=== PATIENT | female | born 1975 | race Caucasian/White ===

== ENCOUNTER 2016-07-21 22:32 | Emergency (ER) | payer BC ==
[2016-07-21] MEDS ORDERED: METHOCARBAMOL 750 MG TABLET PO ONE (23:56)
[2016-07-21] MEDS ORDERED: KETOROLAC TROMETHAMINE 60 MG/2 ML SDV IM ONE (23:56)
--- NOTE | 2016-07-21 23:59 | ER Document Report ---
ED Neck/Back Problem - General Chief Complaint: Low back pain and L hip pain Stated Complaint: BACK/HIP PAIN Time Seen by Provider: 07/21/16 23:13 Mode of Arrival: Ambulatory Information source: Patient TRAVEL OUTSIDE OF THE [place] IN LAST 30 DAYS: No - HPI Patient complains to provider of: Pain Onset: Yesterday Where: Home Onset: Gradual Timing: Still present Quality of pain: Achy Severity: Moderate Pain Level: 3 Recent injury: No Associated symptoms: None Exacerbated by: Movement of trunk Relieved by: Nothing Similar symptoms previously: Yes Recently seen / treated by doctor: No Notes: Patient is a 41-year-old female who presents to the emergency room complaining of low back and left hip pain, symptoms have been going on for the past 2 days, she has a history of injury to these areas from falling off a horse several years ago, and every now and then she states she gets the pain which flares up, she denies any recent injury, no numbness or tingling to her extremities, no saddle anesthesia, no bowel or bladder dysfunction, she has some Dilaudid at home from previous injury which she took earlier today and it gave her no relief , states that Robaxin has given her relief of symptoms in the past - Related Data Allergies/Adverse Reactions: cephalexin monohydrate [From Keflex] Allergy (Verified 02/20/16 16:09) ciprofloxacin [From Cipro] Allergy (Verified 02/20/16 16:09) ciprofloxacin HCl [From Cipro] Allergy (Verified 02/20/16 16:09) Penicillins Allergy (Verified 02/20/16 16:09) Sulfa (Sulfonamide Antibiotics) Allergy (Verified 02/20/16 16:09) iodine [Iodine] Adverse Reaction (Verified 02/20/16 16:09) Past Medical History - General Information source: Patient - Social History Smoking Status: Never Smoker Family History: Reviewed & Not Pertinent - Past Medical History Cardiac Medical History: Reports: Hx Hypertension Pulmonary Medical History: Reports: Hx Asthma Endocrine Medical History: Reports: Hx Hypothyroidism Renal/ Medical History: Denies: Hx Peritoneal Dialysis Psychiatric Medical History: Reports: Hx Depression - Immunizations Hx Diphtheria, Pertussis, Tetanus Vaccination: Yes Review of Systems - Review of Systems Constitutional: No symptoms reported EENT: No symptoms reported Cardiovascular: No symptoms reported Respiratory: No symptoms reported Gastrointestinal: No symptoms reported Genitourinary: No symptoms reported Female Genitourinary: No symptoms reported Musculoskeletal: See HPI Skin: No symptoms reported Hematologic/Lymphatic: No symptoms reported Neurological/Psychological: No symptoms reported -: Yes All other systems reviewed and negative Physical Exam - Vital signs Vitals: Temp Pulse Resp BP Pulse Ox 98.3 F 80 18 130/90 H 100 07/21/16 22:38 07/21/16 22:38 07/21/16 22:38 07/21/16 22:38 07/21/16 22:38 - Notes Notes: - General General appearance: Appears well, Alert In distress: None - HEENT Head: Normocephalic, Atraumatic Eyes: Normal Conjunctiva: Normal Extraocular movements intact: Yes Eyelashes: Normal Pupils: PERRL - Respiratory Respiratory status: No respiratory distress - Cardiovascular Rhythm: Regular - Abdominal Inspection: Normal - Back Back: Palpation left lumbar paraspinal musculature, patient reports pain with straight leg raise, sensation and motor is intact with 2+ DP - Extremities General upper extremity: Normal inspection General lower extremity: Palpate over left greater trochanter - Neurological Neuro grossly intact: Yes Orientation: AAOx4 [place] Coma Scale Eye Opening: Spontaneous Last Coma Scale Verbal: Oriented Last Coma Scale Motor: Obeys Commands [place] Coma Scale Total: 15 - Psychological Associated symptoms: Normal affect, Normal mood - Skin Skin Temperature: Warm Skin Moisture: Dry Skin Color: Normal Course - Re-evaluation Re-evalutation: 07/22/16 00:36 Patient reports feeling much better and ready to go home, she was given a prescription for muscle relaxers and advised to follow-up with her primary care provider or return if symptoms worsen, patient acknowledges understanding and agreement with this plan - Vital Signs Vital signs: Temp Pulse Resp BP Pulse Ox 98.3 F 80 18 130/90 H 100 07/21/16 22:38 07/21/16 22:38 07/21/16 22:38 07/21/16 22:38 07/21/16 22:38 Discharge - Discharge Clinical Impression: Low back pain Qualifiers: Chronicity: acute Back pain laterality: left Sciatica presence: with sciatica Sciatica laterality: sciatica of left side Qualified Code(s): M54.42 - Lumbago with sciatica, left side Condition: Stable Disposition: HOME, SELF-CARE Instructions: Low Back Pain ([facility]), Muscle Strain ([facility]) Additional Instructions: Follow up with your primary care provider in one to 2 days. Return to the emergency room immediately if symptoms worsen or any additional concerns. Prescriptions: Methocarbamol [Robaxin 750 mg Tablet] 750 mg PO Q4 #20 tablet
[2016-07-22 00:50] VITALS: BP 128/83
== END 2016-07-22 00:40 | disposition home or self-care (01) ==
LOC: ER 22:32
DX: M54.42 Lumbago with sciatica, left side (principal); M54.5 Low back pain; M25.552 Pain in left hip
CPT/HCPCS: 99283; 96372; J1885; J3490

== ENCOUNTER 2016-07-31 21:38 | Emergency (ER) | payer BC ==
[2016-07-31] MEDS ORDERED: LIDOCAINE 5% (700 MG) TRANSDERMAL ADH..PATCH TP ONE (23:36)
--- NOTE | 2016-07-31 23:37 | ER Document Report ---
ED General - General Chief Complaint: Low Back Pain Stated Complaint: BACK PAIN Time Seen by Provider: 07/31/16 22:58 Notes: Patient is a 41-year-old female without past medical history who presents with 2 weeks of low back pain. Does describe it as a severe, constant stabbing pain to the sacrum and the bilateral zofia-low lumbar spinal muscles. She was seen 2 weeks ago for a similar presentation but states that despite taking NSAIDs and muscle relaxants she has not had resolution of her pain. Notes that sitting down or moving worsens the pain. She notes that ibuprofen and using a TENS unit tends to improve her pain. She denies any associated weakness, numbness, bowel or bladder incontinence, urinary retention, fever, weakness, numbness or difficulty ambulating. TRAVEL OUTSIDE OF THE [place] IN LAST 30 DAYS: No - Related Data Allergies/Adverse Reactions: cephalexin monohydrate [From Keflex] Allergy (Verified 07/22/16 02:22) ciprofloxacin [From Cipro] Allergy (Verified 07/22/16 02:22) ciprofloxacin HCl [From Cipro] Allergy (Verified 07/22/16 02:22) Penicillins Allergy (Verified 07/22/16 02:22) Sulfa (Sulfonamide Antibiotics) Allergy (Verified 07/22/16 02:22) iodine [Iodine] Adverse Reaction (Verified 07/22/16 02:22) Past Medical History - General Information source: Patient - Social History Smoking Status: Never Smoker Chew tobacco use (# tins/day): No Frequency of alcohol use: None Drug Abuse: None Lives with: Spouse/Significant other Family History: Reviewed & Not Pertinent Patient has suicidal ideation: No Patient has homicidal ideation: No - Past Medical History Cardiac Medical History: Reports: Hx Hypertension Pulmonary Medical History: Reports: Hx Asthma Endocrine Medical History: Reports: Hx Hypothyroidism Renal/ Medical History: Denies: Hx Peritoneal Dialysis Psychiatric Medical History: Reports: Hx Depression - Immunizations Hx Diphtheria, Pertussis, Tetanus Vaccination: Yes Review of Systems - Review of Systems Notes: Constitutional: Negative for fever. Cardiovascular: Negative for chest pain. Respiratory: Negative for shortness of breath. Gastrointestinal: Negative for vomiting Musculoskeletal: Positive for back pain. Skin: Negative for rash. Neurological: Negative for weakness or numbness. 10 point ROS negative except as marked above and in HPI. Physical Exam - Vital signs Vitals: Temp Pulse Resp BP Pulse Ox 97.8 F 79 18 150/98 H 98 07/31/16 21:55 07/31/16 21:55 07/31/16 21:55 07/31/16 21:55 07/31/16 21:55 Interpretation: Hypertensive Notes: PHYSICAL EXAMINATION: GENERAL: Well-appearing, well-nourished and in no acute distress. HEAD: Atraumatic, normocephalic. EYES: Pupils equal round and reactive to light, extraocular movements intact, sclera anicteric, conjunctiva are normal. ENT: nares patent, oropharynx clear without exudates. Moist mucous membranes. NECK: Normal range of motion, supple without lymphadenopathy LUNGS: Breath sounds clear to auscultation bilaterally and equal. No wheezes rales or rhonchi. HEART: Regular rate and rhythm without murmurs ABDOMEN: Soft, nontender, normoactive bowel sounds. No guarding, no rebound. No masses appreciated. EXTREMITIES: Normal range of motion, no pitting or edema. No cyanosis. Back: Diffuse zofia-lumbar and sacral pain on palpation. Mild pain on palpation of the low sacrum. NEUROLOGICAL: 5 out of 5 strength both distally and proximally bilateral lower extremities. 2+ patellar reflexes bilaterally. No clonus. Sensation grossly intact in the bilateral lower extremities. Patient is able to ambulate without difficulty. Able to walk on heels and toes. PSYCH: Normal mood, normal affect. SKIN: Warm, Dry, normal turgor, no rashes or lesions noted. Course - Re-evaluation Re-evalutation: 07/31/16 23:36 Presentation of a well appearing patient complaining of acute on chronic back pain. No rapid progression of symptoms, systemic symptoms including fevers, chills, weight loss, history of recent bacterial infection, bilateral symptoms, numbness, weakness, difficulty walking, urinary retention or bowel incontinence , personal history of cancer, immunosuppression, diabetes, known AAA, or history of IV drug use. Exam is without point tenderness over vertebral bodies , pulsatile abdominal mass, and patient has symmetric and intact lower extremity strength, sensation, and reflexes without clonus. 2+ symmetric medial malleolar and dorsalis pedis pulses Based on history and physical, I have a very low suspicion of a concerning etiology of pain including epidural compression syndrome, spinal infection, transverse myelitis, malignancy, abdominal aortic aneurysm, renal colic, acute lower extremity claudication, neurogenic claudication, ankylosing spondylitis, or other intra-abdominal process. Due to absence of concerning risk factors in history and physical as well as absence of rapidly progressive, severe, or bilateral symptoms, will defer imaging at this point. Plan to manage conservatively with outpatient analgesia, analgesia, and physical therapy. - Acetaminophen 650 q 4 + ibuprofen 600 q 6 - Continue normal daily activities as tolerated by pain - Provide with standard musculoskeletal back pain exercise instructions - Instruct to follow up with primary care provider if symptoms not improving - Provide careful return precautions and concerning symptoms to watch for. - Vital Signs Vital signs: Temp Pulse Resp BP Pulse Ox 97.8 F 74 17 129/68 H 98 07/31/16 21:55 07/31/16 23:54 07/31/16 23:54 07/31/16 23:54 07/31/16 23:54 Discharge - Discharge Clinical Impression: Low back pain Qualifiers: Chronicity: acute Back pain laterality: midline Sciatica presence: without sciatica Qualified Code(s): M54.5 - Low back pain Condition: Good Disposition: HOME, SELF-CARE Additional Instructions: You have been seen in the Emergency Department (ED) today for back pain. Your workup and exam have not shown any acute abnormalities and you are likely suffering from muscle strain or possible problems with your discs, but there is no treatment that will fix your symptoms at this time. Continue to take ibuprofen as directed. You should also purchase a local lidocaine cream such as "aspercreme with lidocaine" and use per bottle instructions to the affected area. Apply heat to the area as often as you are able. Continue to keep active and avoid prolonged periods of bed rest. Please follow up with your doctor as soon as possible regarding today's ED visit and your back pain. Return to the ED for worsening back pain, fever, weakness or numbness of either leg, or if you develop either (1) an inability to urinate or have bowel movements, or (2) loss of your ability to control your bathroom functions (if you start having "accidents"), or if you develop other new symptoms that concern you.concern you. Referrals: MAURO PRESSLEY MD [ACTIVE STAFF] - Follow up in 1 week
[2016-07-31 23:55] VITALS: BP 129/68
== END 2016-07-31 23:53 | disposition home or self-care (01) ==
LOC: ER 21:38
DX: M54.5 Low back pain (principal); G89.29 Other chronic pain; I10 Essential (primary) hypertension; J45.909 Unspecified asthma, uncomplicated; Z88.1 Allergy status to other antibiotic agents; Z88.0 Allergy status to penicillin; Z88.2 Allergy status to sulfonamides
CPT/HCPCS: 99283

== ENCOUNTER 2016-08-23 03:53 | Emergency (ER) | payer BC ==
[2016-08-23 04:27] LABS: APPEARANCE,URINE TURBID; BILIRUBIN,URINE NEGATIVE (NEGATIVE); GLUCOSE, URINE 50 mg/dL (NEGATIVE); KETONES,URINE NEGATIVE (NEGATIVE); LEUKOCYTE ESTERASE,URINE SMALL (NEGATIVE); NITRITE,URINE POSITIVE (NEGATIVE); PROTEIN,URINE 100 mg/dL (NEGATIVE); URINE SPECIFIC GRAVITY 1.014
[2016-08-23] MEDS ORDERED: NITROFURANTOIN MONOHYD/M-CRYST 100 MG CAPSULE PO ONE (06:05)
[2016-08-23 06:12] LABS: ABSOLUTE EOSINOPHILS # (AUTO) 0.1 10^3/uL (0.0-0.6); ABSOLUTE LYMPHOCYTES (AUTO) 1.3 10^3/uL (0.5-4.7); ABSOLUTE MONOCYTES (AUTO) 0.8 10^3/uL (0.1-1.4); ABSOLUTE NEUT (AUTO) 8.6 10^3/uL (1.7-8.2); BASOPHILS % (AUTO) 0.4 % (0-2); EOSINOPHILS % (AUTO) 0.8 % (0-6); HEMATOCRIT 40.8 % (36.0-47.0); HEMOGLOBIN 13.8 g/dL (12.0-15.5); HGB HCT DIFFERENCE 0.6; LYMPHOCYTES % (AUTO) 12.3 % (13-45); MEAN CORPUSCULAR HGB CONC 33.8 g/dL (32.0-36.0); MEAN CORPUSCULAR VOLUME 92 fl (80-97); MONOCYTES % (AUTO) 7.6 % (3-13); RED BLOOD COUNT 4.45 10^6/uL (3.72-5.28); RED CELL DISTRIBUTION WIDTH 13.2 % (11.5-14.0); SEGMENTED NEUTROPHILS % (AUTO) 78.9 % (42-78); WHITE BLOOD COUNT 10.9 10^3/uL (4.0-10.5)
[2016-08-23 06:36] LABS: ALANINE AMINOTRANSFERASE 29 U/L (9-52); ALBUMIN 3.8 g/dL (3.5-5.0); ALKALINE PHOSPHATASE 65 U/L (38-126); ANION GAP 9 (5-19); ASPARTATE AMINO TRANSFERASE 19 U/L (14-36); BILIRUBIN,DIRECT 0.1 mg/dL (0.0-0.4); BILIRUBIN,TOTAL 0.8 mg/dL (0.2-1.3); BLOOD UREA NITROGEN 6 mg/dL (7-20); CALCIUM 8.5 mg/dL (8.4-10.2); CARBON DIOXIDE 28 mmol/L (22-30); CHLORIDE 101 mmol/L (98-107); GLUCOSE 86 mg/dL (75-110); POTASSIUM 4.2 mmol/L (3.6-5.0); SODIUM 137.6 mmol/L (137-145); TOTAL PROTEIN 6.6 g/dL (6.3-8.2)
[2016-08-23] MEDS ORDERED: PROCHLORPERAZINE EDISYLATE INJ 10 MG/2 ML VIAL IM ONE (06:48)
[2016-08-23] MEDS ORDERED: DEXAMETHASONE SOD PHOS INJ 10 MG/1 ML VIAL IM ONE (06:48)
[2016-08-23] MEDS ORDERED: DIPHENHYDRAMINE HCL 50 MG/ML VIAL IM ONE (06:48)
--- NOTE | 2016-08-23 07:29 | ER Document Report ---
ED General - General Chief Complaint: Lower Abdominal Pain Stated Complaint: LOWER ABDOMINAL PAIN Time Seen by Provider: 08/23/16 06:02 Mode of Arrival: Ambulatory Information source: Patient Notes: 41-year-old female history of migraine headaches presents with complaints of migraine headache. Patient denies any neurological deficits denies any numbness weakness loss of bowel or bladder function. Patient does admit to symptoms ongoing now for over 4 days. Patient also admits since yesterday she began having pressure in her bladder and she took Macrobid that she had leftover. TRAVEL OUTSIDE OF THE [place] IN LAST 30 DAYS: No - HPI Onset: Just prior to arrival Onset/Duration: Sudden Quality of pain: Achy Severity: Mild Pain Level: 1 Associated symptoms: Headache, Other Exacerbated by: Other - Urination Relieved by: Denies Similar symptoms previously: Yes Recently seen / treated by doctor: No - Related Data Allergies/Adverse Reactions: cephalexin monohydrate [From Keflex] Allergy (Verified 07/22/16 02:22) ciprofloxacin [From Cipro] Allergy (Verified 07/22/16 02:22) ciprofloxacin HCl [From Cipro] Allergy (Verified 07/22/16 02:22) Penicillins Allergy (Verified 07/22/16 02:22) Sulfa (Sulfonamide Antibiotics) Allergy (Verified 07/22/16 02:22) iodine [Iodine] Adverse Reaction (Verified 07/22/16 02:22) Past Medical History - Social History Smoking Status: Never Smoker Cigarette use (# per day): No Chew tobacco use (# tins/day): No Smoking Education Provided: No Family History: Reviewed & Not Pertinent Patient has suicidal ideation: No Patient has homicidal ideation: No - Past Medical History Cardiac Medical History: Reports: Hx Hypertension Pulmonary Medical History: Reports: Hx Asthma Endocrine Medical History: Reports: Hx Hypothyroidism Renal/ Medical History: Denies: Hx Peritoneal Dialysis Psychiatric Medical History: Reports: Hx Depression - Immunizations Hx Diphtheria, Pertussis, Tetanus Vaccination: Yes Review of Systems - Review of Systems Notes: REVIEW OF SYSTEMS: CONSTITUTIONAL : Denies fever, chills, or sweats. Denies recent illness. EENT: Denies eye, ear, throat, or mouth pain or symptoms. Denies nasal or sinus congestion or discharge. Denies throat, tongue, or mouth swelling or difficulty swallowing. CARDIOVASCULAR: Denies chest pain. Denies palpitations or racing or irregular heart beat. Denies ankle edema. RESPIRATORY: Denies cough, cold, or chest congestion. Denies shortness of breath, difficulty breathing, or wheezing. GASTROINTESTINAL: Denies abdominal pain or distention. Denies nausea, vomiting , or diarrhea. Denies blood in vomitus, stools, or per rectum. Denies black, tarry stools. Denies constipation. GENITOURINARY: Burning on urination FEMALE GENITOURINARY: Denies vaginal bleeding, heavy or abnormal periods, irregular periods. Denies vaginal discharge or odor. MUSCULOSKELETAL: Denies back or neck pain or stiffness. Denies joint pain or swelling. SKIN: Denies rash, lesions or sores. HEMATOLOGIC : Denies easy bruising or bleeding. LYMPHATIC: Denies swollen, enlarged glands. NEUROLOGICAL: Admits headache PSYCHIATRIC: Denies anxiety or stress. Denies depression, suicidal ideation, or homicidal ideation. ALL OTHER SYSTEMS REVIEWED AND NEGATIVE. PHYSICAL EXAMINATION: GENERAL: Well-appearing, well-nourished and in no acute distress. HEAD: Atraumatic, normocephalic. EYES: Pupils equal round and reactive to light, extraocular movements intact, conjunctiva are normal. ENT: Nares patent, oropharynx clear without exudates. Moist mucous membranes. NECK: Normal range of motion, supple without lymphadenopathy LUNGS: Breath sounds clear to auscultation bilaterally and equal. No wheezes rales or rhonchi. HEART: Regular rate and rhythm without murmurs ABDOMEN: Soft, mild suprapubic tenderness on palpation no rebound or guarding No masses appreciated. Female : deferred Musculoskeletal: Normal range of motion, no pitting or edema. No cyanosis. NEUROLOGICAL: Cranial nerves grossly intact. Normal speech, normal gait. Normal sensory, motor exams PSYCH: Normal mood, normal affect. SKIN: Warm, Dry, normal turgor, no rashes or lesions noted. Dictation was performed using [email or web address] voice recognition software Physical Exam - Vital signs Vitals: Temp Pulse Resp BP Pulse Ox 97.8 F 83 20 136/97 H 97 08/23/16 03:58 08/23/16 03:58 08/23/16 03:58 08/23/16 03:58 08/23/16 03:58 Course - Re-evaluation Re-evalutation: 08/23/16 07:29 Patient does have an obvious urinary tract infection, patient will be started on Macrobid. She is otherwise well-appearing. Patient does have a headache we will treat her with Benadryl Compazine and Decadron 08/23/16 08:35 Patient is drowsy but states she still has a headache, I will try Haldol for intractable headache 08/23/16 09:13 pt notes headaches in past have not resovled with benadryl compazin or toradol 08/23/16 10:18 Patient headache resolved with 10 mg of Haldol, patient feels completely better After performing a Medical Screening Examination, I estimate there is LOW risk for ACUTE GLAUCOMA, TEMPORAL ARTERITIS, MENINGITIS, INCRANIAL HEMORRHAGE, or ISCHEMIC STROKE thus I consider the discharge disposition reasonable. I have reevaluated this patient multiple times and no significant life threatening changes are noted. The patient and I have discussed the diagnosis and risks, and we agree with discharging home with close follow-up with the understanding that symptoms and presentations can change. We also discussed returning to the Emergency Department immediately if new or worsening symptoms occur. We have discussed the symptoms which are most concerning (e.g., changing or worsening symptoms, new numbness or weakness, vomiting, fever) that necessitate immediate return. - Vital Signs Vital signs: Temp Pulse Resp BP Pulse Ox 97.8 F 83 20 136/97 H 97 08/23/16 03:58 08/23/16 03:58 08/23/16 03:58 08/23/16 03:58 08/23/16 03:58 - Laboratory Result Diagrams: 08/23/16 06:02 08/23/16 06:02 Laboratory results interpreted by me: 08/23/16 08/23/16 08/23/16 03:58 06:02 06:02 WBC 10.9 H Seg Neutrophils % 78.9 H Lymphocytes % 12.3 L Absolute Neutrophils 8.6 H BUN 6 L Urine Protein 100 H Urine Glucose (UA) 50 H Urine Blood LARGE H Urine Nitrite POSITIVE H Urine Urobilinogen 2.0 H Ur Leukocyte Esterase SMALL H Discharge - Discharge Clinical Impression: Migraine headache Qualifiers: Migraine type: unspecified Status migrainosus presence: without status migrainosus Intractability: not intractable Qualified Code(s): G43.909 - Migraine, unspecified, not intractable, without status migrainosus UTI (urinary tract infection) Qualifiers: Urinary tract infection type: acute cystitis Hematuria presence: with hematuria Qualified Code(s): N30.01 - Acute cystitis with hematuria Condition: Stable Disposition: HOME, SELF-CARE Instructions: Urinary Tract Infection ([facility]), Headache ([facility]) Prescriptions: Nitrofurantoin/Nitrofuran Mac [Macrobid 100 mg Capsule] 1 tab PO BID #20 capsule Referrals: KADEN GRIFFITHS PA [Primary Care Provider] - Follow up as needed GIOVANNI MORALES MD [ACTIVE STAFF] - Follow up tomorrow
[2016-08-23] MEDS ORDERED: HALOPERIDOL 5 MG TABLET PO ONE (08:34)
[2016-08-23] MEDS ORDERED: DIPHENHYDRAMINE HCL 25 MG CAPSULE PO ONE (08:35)
[2016-08-23 10:27] VITALS: BP 141/99
== END 2016-08-23 10:29 | disposition home or self-care (01) ==
LOC: ER 03:53
DX: N30.01 Acute cystitis with hematuria (principal); G43.909 Migraine, unspecified, not intractable, without status migrainosus; I10 Essential (primary) hypertension; J45.909 Unspecified asthma, uncomplicated; Z88.1 Allergy status to other antibiotic agents; Z88.0 Allergy status to penicillin; Z88.2 Allergy status to sulfonamides
CPT/HCPCS: 99284; 96372; 36415; 85025; 81025; 80053; 81001; J1200; J0780; J1100; J8499

== ENCOUNTER 2016-08-25 16:58 | Emergency (ER) | payer BC ==
[2016-08-25] MEDS ORDERED: DIPHENHYDRAMINE HCL 50 MG/ML VIAL IV ONE (17:17)
[2016-08-25] MEDS ORDERED: METOCLOPRAMIDE HCL INJ/PF 10 MG/2 ML SDV IV ONE ×2 (17:17→20:36)
[2016-08-25] MEDS ORDERED: NORMAL SALINE 1000 ML 1,000 ML IV ONE (17:18)
--- NOTE | 2016-08-25 17:19 | ER Document Report ---
ED Medical Screen (RME) - General Chief Complaint: Headache Stated Complaint: VISION PROBLEM Time Seen by Provider: 08/25/16 17:11 Notes: The patient is a 41-year-old, PMHx migraines, presents with 3 days of a posterior headache and intermittent blurry vision when the headache is worse. She has had headaches in the past similar to this and usually resolve after 800 mg Motrin. She was seen in the emergency room 3 days ago for a UTI and was given Benadryl, Compazine, Toradol, fluids without much relief of her symptoms. She was then given 10 mg Haldol and had relief of her symptoms. Pt has a history of 2 concussions a few months ago before the headache started. PE: PERRL, Non-focal neuro exam. No acute distress. I have greeted and performed a rapid initial assessment of this patient. A comprehensive ED assessment and evaluation of the patient, analysis of test results and completion of the medical decision making process will be conducted by additional ED providers. TRAVEL OUTSIDE OF THE [place] IN LAST 30 DAYS: No - Related Data Allergies/Adverse Reactions: cephalexin monohydrate [From Keflex] Allergy (Verified 08/25/16 17:04) ciprofloxacin [From Cipro] Allergy (Verified 08/25/16 17:04) ciprofloxacin HCl [From Cipro] Allergy (Verified 08/25/16 17:04) Penicillins Allergy (Verified 08/25/16 17:04) Sulfa (Sulfonamide Antibiotics) Allergy (Verified 08/25/16 17:04) iodine [Iodine] Adverse Reaction (Verified 08/25/16 17:04) Past Medical History - Social History Chew tobacco use (# tins/day): No Frequency of alcohol use: None Drug Abuse: None - Past Medical History Cardiac Medical History: Reports: Hx Hypertension Pulmonary Medical History: Reports: Hx Asthma Endocrine Medical History: Reports: Hx Hypothyroidism Renal/ Medical History: Denies: Hx Peritoneal Dialysis Psychiatric Medical History: Reports: Hx Depression - Immunizations Hx Diphtheria, Pertussis, Tetanus Vaccination: Yes Physical Exam - Vital signs Vitals: Temp Pulse Resp BP Pulse Ox 97.9 F 73 16 153/90 H 99 08/25/16 17:03 08/25/16 17:03 08/25/16 17:03 08/25/16 17:03 08/25/16 17:03 Course - Vital Signs Vital signs: Temp Pulse Resp BP Pulse Ox 97.9 F 73 16 153/90 H 99 08/25/16 17:03 08/25/16 17:03 08/25/16 17:03 08/25/16 17:03 08/25/16 17:03
--- NOTE | 2016-08-25 18:07 | ER Document Report ---
ED Headache - General Chief Complaint: Headache Stated Complaint: VISION PROBLEM Time Seen by Provider: 08/25/16 17:11 Notes: Patient is complaining of a persistent headache that has been present since Friday. It awakened her during the night around 3:30 AM. It was associated with nausea but not vomiting, blurred vision, but no neurologic symptoms or deficits and no loss of consciousness. Patient was seen here Friday and it was noted that the patient has had headaches for a long time, since the age of about 16 years. Additionally, patient has a history of falls, hitting her head , with concussions this past January and February, and she has had a concussion about 7 years ago, as well. On that ED visit on Friday, she was found to have a UTI on that visit and started on Macrobid. They were unable to get her headache completely resolved with Reglan and Benadryl and steroid IM and eventually gave her 10 mg of Haldol p.o. and she had almost complete resolution of her headache, although it has come back now. She says that she has been feeling tired and no energy over the past few days and does not want to take anymore Haldol. Patient has not been aware of any fever. Denies sore throat or earaches. TRAVEL OUTSIDE OF THE [place] IN LAST 30 DAYS: No - Related Data Allergies/Adverse Reactions: cephalexin monohydrate [From Keflex] Allergy (Verified 08/25/16 17:04) ciprofloxacin [From Cipro] Allergy (Verified 08/25/16 17:04) ciprofloxacin HCl [From Cipro] Allergy (Verified 08/25/16 17:04) Penicillins Allergy (Verified 08/25/16 17:04) Sulfa (Sulfonamide Antibiotics) Allergy (Verified 08/25/16 17:04) iodine [Iodine] Adverse Reaction (Verified 08/25/16 17:04) Past Medical History - Social History Smoking Status: Never Smoker Chew tobacco use (# tins/day): No Frequency of alcohol use: None Drug Abuse: None Family History: Reviewed & Not Pertinent Patient has suicidal ideation: No Patient has homicidal ideation: No - Past Medical History Cardiac Medical History: Reports: Hx Hypertension Pulmonary Medical History: Reports: Hx Asthma Endocrine Medical History: Reports: Hx Hypothyroidism Psychiatric Medical History: Reports: Hx Depression - Immunizations Hx Diphtheria, Pertussis, Tetanus Vaccination: Yes Review of Systems - Review of Systems Notes: REVIEW OF SYSTEMS: CONSTITUTIONAL : Not sure if fever. EENT: Blurred vision. Denies ear, nose or mouth or throat pain or other symptoms. CARDIOVASCULAR: Denies chest pain. RESPIRATORY: Denies cough, chest congestion, or shortness of breath. GASTROINTESTINAL: Some nausea but denies abdominal pain vomiting, or diarrhea. GENITOURINARY: Denies difficulty or painful urinating, urinary frequency, blood in urine. MUSCULOSKELETAL: Denies back or neck pain. Denies joint pain or swelling. SKIN: Denies rash or skin lesions. NEUROLOGICAL: Denies LOC or altered mental status. See HPI regarding headache. Denies sensory loss or motor deficits. ALL OTHER SYSTEMS REVIEWED AND NEGATIVE. Physical Exam - Vital signs Vitals: Temp Pulse Resp BP Pulse Ox 97.9 F 73 16 153/90 H 99 08/25/16 17:03 08/25/16 17:03 08/25/16 17:03 08/25/16 17:03 08/25/16 17:03 Interpretation: Normal - Notes Notes: PHYSICAL EXAMINATION: GENERAL: Well-appearing, resting quietly on the stretcher, in no acute distress. Afebrile. Vital signs are all normal. HEAD: Atraumatic, normocephalic. EYES: Pupils equal round and reactive to light, extraocular movements intact. ENT: oropharynx clear without exudates. Moist mucous membranes. NECK: Normal range of motion, supple. Says she does have some discomfort in the back of her neck when her head is flexed actively, but there is no nuchal rigidity or resistance. LUNGS: Breath sounds clear and equal bilaterally. HEART: Regular rate and rhythm without murmurs. ABDOMEN: Soft, nontender. No guarding or rebound. BACK: No tenderness throughout entire back. EXTREMITIES: Normal range of motion without pain. NEUROLOGICAL: Normal speech, normal gait. Normal sensory, motor, and reflex exams. Awake, alert, and oriented x3. PSYCH: Normal mood, normal affect. May be somewhat depressed acting. SKIN: Warm, dry, no rashes. Course - Re-evaluation Re-evalutation: 08/26/16 00:[address] of the head is normal. Patient says she has not gotten much relief of her headache with the IV Reglan and Benadryl. I suggested I give her a prescription for some more Reglan for her to try over the next few days to see if it does not eventually work to relieve her migraine headaches. I am also providing her with a sixpack of [place] to take for rescue relief. I have encouraged the patient to follow-up with a neurologist to look into the headache she is having an managing them. Patient was discharged and able to ambulate out of the ED. - Vital Signs Vital signs: Temp Pulse Resp BP Pulse Ox 98.3 F 79 16 141/84 H 96 08/25/16 20:44 08/25/16 20:44 08/25/16 20:44 08/25/16 20:44 08/25/16 20:44 - Diagnostic Test Radiology reviewed: Image reviewed, Reports reviewed - CT of the brain was normal. Discharge - Discharge Clinical Impression: Headache Qualifiers: Headache type: unspecified Headache chronicity pattern: acute headache Intractability: intractable Qualified Code(s): R51 - Headache Condition: Stable Disposition: HOME, SELF-CARE Additional Instructions: HEADACHE: The physician does not feel that the headache you are experiencing has a serious underlying cause. Most headaches are due to emotional stress, with resultant muscle tension (tension headache). Occasionally, headaches are secondary to changes in the blood vessels of the scalp (vascular headache and migraine headache). Sometimes, a headache is the first symptom of another developing illness, such as a viral infection. You have no evidence of stroke, bleeding, meningitis, or other serious cause of your headache. The treatment of headaches varies with the severity and cause of the pain. Not all headaches need pain shots. In fact, there is evidence that using narcotics for headaches may make them worse in the long run. The physician will determine the therapy that's in your best interest. If you develop a fever, if the headache is different from any you've previously experienced, or if the headache progressively worsens, then call your physician at once or go to the emergency room. REGLAN (METOCLOPRAMIDE): Reglan has been prescribed. This medicine affects the stomach and intestines. It can be used to treat nausea and vomiting, to prevent reflux of stomach acid up into the esophagus, or to increase the contractions of the stomach and intestines. It is often prescribed for esophagitis, and for paralysis of the stomach in diabetics. Reglan can cause either mild restlessness or drowsiness. You should contact the doctor at once if you become extremely restless, anxious, or cannot sleep, or if you develop uncontrollable motions of the lips, tongue, or jaw. Do not take alcohol with this medicine. Do not drive or operate machinery until you have been taking this medicine long enough to know how it affects you. Call the doctor if you develop abdominal pains, lightheadedness, black stool, or blood in the stool or vomitus. USE OF DIPHENHYDRAMINE: Diphenhydramine (Benadryl) is an antihistamine and has been recommended to help treat your headache and to prevent side effects of other medications used to treat headaches. The medication can be repeated four times daily. Age Elixir (12.5 mg/tsp) 25 mg pill adult 1-2 tabs Antihistamines may cause drowsiness, especially with the first dose. Do not operate machinery or drive while under the effects of the medication. Do not combine the medication with alcohol, or with any other medication without talking to your doctor. ORAL NARCOTIC MEDICATION: You have been given a prescription for pain control. This medication is a narcotic. It's best taken with food, as nausea can result if taken on an empty stomach. Don't operate machinery or drive within six hours of taking this medication. Do not combine this medicine with alcohol, or with any medication which can cause sedation (such as cold tablets or sleeping pills) unless you get permission from the physician. Narcotics tend to cause constipation. If possible, drink plenty of fluids and eat a diet high in fiber and fruits. FOLLOW-UP CARE: If you have been referred to a physician for follow-up care, call the physician s office for an appointment as you were instructed or within the next two days. If you experience worsening or a significant change in your symptoms, notify the physician immediately or return to the Emergency Department at any time for re-evaluation. Return if you develop new or worsening symptoms such as high fever, etc. I recommend you follow-up with a neurologist for evaluation and long-term management of your headaches. Prescriptions: Metoclopramide HCl [Reglan 10 mg Tablet] 1 - 2 tab PO Q6HP PRN #30 tablet PRN Reason: Forms: Return to Work Referrals: GIOVANNI MORALES MD [ACTIVE STAFF] - Follow up as needed
--- NOTE | 2016-08-25 18:55 | RADIOLOGY REPORT (SQ) ---
EXAM DESCRIPTION: CT HEAD WITHOUT COMPLETED DATE/TIME: 08/25/2016 6:23 pm REASON FOR STUDY: Persistent headache COMPARISON: 2016 TECHNIQUE: Axial images acquired through the brain without intravenous contrast. Images reviewed wi th bone, brain and subdural windows. Images stored on PACS. All CT scanners at this facility use dose modulation, iterative reconstruction, and/or weight based d osing when appropriate to reduce radiation dose to as low as reasonably achievable (ALARA). [facility]: Dose Right [facility]: CareDose [facility]: Dose Right [facility]: Teradose 4D [facility]: Smart [employer] RADIATION DOSE: Up-to-date CT equipment and radiation dose reduction techniques were employed. CTDIv ol: 64.6 mGy. DLP: 1292 mGy-cm. mGy. LIMITATIONS: None. FINDINGS: VENTRICLES: Normal size and contour. CEREBRUM: No masses. No hemorrhage. No midline shift. Normal miller/white matter differentiation. N o evidence for acute infarction. CEREBELLUM: No masses. No hemorrhage. No alteration of density. No evidence for acute infarction. EXTRAAXIAL SPACES: No fluid collections. No masses. ORBITS AND GLOBE: No intra- or extraconal masses. Normal contour of globe without masses. CALVARIUM: No fracture. PARANASAL SINUSES: No fluid or mucosal thickening. SOFT TISSUES: No mass or hematoma. OTHER: No other significant finding. IMPRESSION: NORMAL BRAIN CT WITHOUT CONTRAST. TECHNICAL DOCUMENTATION: JOB ID: [id number] Quality ID # [id number]: Final reports with documentation of one or more dose reduction techniques (e.g., Au tomated exposure control, adjustment of the mA and/or kV according to patient size, use of iterative reconstruction technique) 2010 [employer]- All Rights Reserved
[2016-08-25] MEDS ORDERED: HYDROCODONE/ACETAMINOPHEN 5-325 MG 6 TAB/DSPK PO PRN (20:36)
[2016-08-25] MEDS ORDERED: METOCLOPRAMIDE HCL INJ/PF 10 MG/2 ML SDV ONE (20:39)
[2016-08-25 21:00] VITALS: BP 141/84
== END 2016-08-25 21:00 | disposition home or self-care (01) ==
LOC: ER 16:58
DX: G43.909 Migraine, unspecified, not intractable, without status migrainosus (principal); R11.0 Nausea; H53.8 Other visual disturbances; Z87.820 Personal history of traumatic brain injury; R53.83 Other fatigue; I10 Essential (primary) hypertension; J45.909 Unspecified asthma, uncomplicated; Z88.1 Allergy status to other antibiotic agents; Z88.0 Allergy status to penicillin; Z88.2 Allergy status to sulfonamides
CPT/HCPCS: 96376; 99284; 96374; 96375; 70450; J1200; J2765; J7030

== ENCOUNTER 2018-06-30 10:18 | Emergency (ER) | payer SELFPAY ==
[2018-06-30] MEDS ORDERED: ONDANSETRON HCL 8 MG TABLET PO ONE (10:54)
--- NOTE | 2018-06-30 10:56 | ER Document Report ---
ED Medical Screen (RME) - General Chief Complaint: Abdominal Pain Stated Complaint: VOMITTING Time Seen by Provider: 06/30/18 10:54 Primary Care Provider: KADEN RUTLEDGE PA-C [Primary Care Provider] - Follow up as needed Mode of Arrival: Ambulatory Information source: Patient Notes: Patient presents to the emergency department with complaints of vomiting diarrhea for the past month. Also complains of dizziness this morning. Denies fever denies pain with void. Reports symptoms come and go. I have greeted and performed a rapid initial assessment of this patient. A comprehensive ED assessment and evaluation of the patient, analysis of test results and completion of the medical decision making process will be conducted by additional ED providers. Dictation of this chart was performed using voice recognition software; therefore, there may be some unintended grammatical errors. TRAVEL OUTSIDE OF THE [place] IN LAST 30 DAYS: No - Related Data Allergies/Adverse Reactions: cephalexin monohydrate [From Keflex] Allergy (Verified 06/30/18 10:35) ciprofloxacin [From Cipro] Allergy (Verified 06/30/18 10:35) ciprofloxacin HCl [From Cipro] Allergy (Verified 06/30/18 10:35) Penicillins Allergy (Verified 06/30/18 10:35) Sulfa (Sulfonamide Antibiotics) Allergy (Verified 06/30/18 10:35) iodine [Iodine] Adverse Reaction (Verified 06/30/18 10:35) Past Medical History - Past Medical History Cardiac Medical History: Reports: Hx Hypertension Pulmonary Medical History: Reports: Hx Asthma Endocrine Medical History: Reports: Hx Hypothyroidism Renal/ Medical History: Denies: Hx Peritoneal Dialysis Psychiatric Medical History: Reports: Hx Depression - Immunizations Hx Diphtheria, Pertussis, Tetanus Vaccination: Yes Physical Exam - Vital signs Vitals: Temp Pulse Resp BP Pulse Ox 97.4 F 93 14 123/89 H 99 06/30/18 10:44 06/30/18 10:44 06/30/18 10:44 06/30/18 10:44 06/30/18 10:44 Course - Vital Signs Vital signs: Temp Pulse Resp BP Pulse Ox 97.4 F 93 14 123/89 H 99 06/30/18 10:44 06/30/18 10:44 06/30/18 10:44 06/30/18 10:44 06/30/18 10:44 Doctor's Discharge - Discharge Referrals: KADEN RUTLEDGE PA-C [Primary Care Provider] - Follow up as needed
[2018-06-30 11:34] LABS: ABSOLUTE LYMPHOCYTES (AUTO) 0.8 10^3/uL (0.5-4.7); ABSOLUTE MONOCYTES (AUTO) 0.7 10^3/uL (0.1-1.4); ABSOLUTE NEUT (AUTO) 3.7 10^3/uL (1.7-8.2); BASOPHILS % (AUTO) 0.2 % (0-2); EOSINOPHILS % (AUTO) 0.8 % (0-6); HEMATOCRIT 45.2 % (36.0-47.0); HEMOGLOBIN 15.6 g/dL (12.0-15.5); LYMPHOCYTES % (AUTO) 14.8 % (13-45); MEAN CORPUSCULAR HEMOGLOBIN 31.9 pg (27.0-33.4); MEAN CORPUSCULAR HGB CONC 34.6 g/dL (32.0-36.0); MEAN CORPUSCULAR VOLUME 92 fl (80-97); MONOCYTES % (AUTO) 13.9 % (3-13); PLATELET COUNT 296 10^3/uL (150-450); RED CELL DISTRIBUTION WIDTH 13.3 % (11.5-14.0); SEGMENTED NEUTROPHILS % (AUTO) 70.3 % (42-78); TOTAL CELLS COUNTED % (AUTO) 100 %; WHITE BLOOD COUNT 5.3 10^3/uL (4.0-10.5)
[2018-06-30 11:44] LABS: APPEARANCE,URINE SLIGHTLY-CLOUDY; BILIRUBIN,URINE NEGATIVE (NEGATIVE); COLOR,URINE YELLOW; GLUCOSE, URINE NEGATIVE (NEGATIVE); KETONES,URINE 20 mg/dL (NEGATIVE); LEUKOCYTE ESTERASE,URINE NEGATIVE (NEGATIVE); NITRITE,URINE NEGATIVE (NEGATIVE); PROTEIN,URINE NEGATIVE (NEGATIVE); URINE SPECIFIC GRAVITY 1.024; UROBILINOGEN,URINE NEGATIVE mg/dL (<2.0)
[2018-06-30 11:49] LABS: ALANINE AMINOTRANSFERASE 31 U/L (9-52); ALKALINE PHOSPHATASE 75 U/L (38-126); ANION GAP 12 (5-19); ASPARTATE AMINO TRANSFERASE 18 U/L (14-36); BILIRUBIN,DIRECT 0.2 mg/dL (0.0-0.4); BLOOD UREA NITROGEN 12 mg/dL (7-20); CALCIUM 9.1 mg/dL (8.4-10.2); CARBON DIOXIDE 25 mmol/L (22-30); CHLORIDE 102 mmol/L (98-107); GLUCOSE 95 mg/dL (75-110); LIPASE 61.1 U/L (23-300); POTASSIUM 4.6 mmol/L (3.6-5.0); SODIUM 138.9 mmol/L (137-145); TOTAL PROTEIN 7.2 g/dL (6.3-8.2)
--- NOTE | 2018-06-30 12:47 | ER Document Report ---
ED General - General Chief Complaint: Abdominal Pain Stated Complaint: VOMITTING Time Seen by Provider: 06/30/18 10:54 Primary Care Provider: KADEN RUTLEDGE PA-C [Primary Care Provider] - Follow up as needed Mode of Arrival: Ambulatory Notes: 43-year-old female presents with diarrhea and vomiting with decreased oral intake for 1 month. Intermittent abdominal pain starting last night. She says that the symptoms been constant but then says that she is been better for a few days and got worse again last night. She was very dizzy last night as well and did not eat much. Weight changes, denies fevers today denies urinary symptoms. Has talked to her primary care but has not discussed this with her. She says she might of been diagnosed with Crohn's in the past but is never had a co lonoscopy. Denies bloody stool. TRAVEL OUTSIDE OF THE [place] IN LAST 30 DAYS: No - Related Data Allergies/Adverse Reactions: cephalexin monohydrate [From Keflex] Allergy (Verified 06/30/18 10:35) ciprofloxacin [From Cipro] Allergy (Verified 06/30/18 10:35) ciprofloxacin HCl [From Cipro] Allergy (Verified 06/30/18 10:35) Penicillins Allergy (Verified 06/30/18 10:35) Sulfa (Sulfonamide Antibiotics) Allergy (Verified 06/30/18 10:35) iodine [Iodine] Adverse Reaction (Verified 06/30/18 10:35) Past Medical History - General Information source: Patient - Social History Smoking Status: Current Every Day Smoker Family History: Reviewed & Not Pertinent Patient has suicidal ideation: No Patient has homicidal ideation: No - Past Medical History Cardiac Medical History: Reports: Hx Hypertension Pulmonary Medical History: Reports: Hx Asthma Endocrine Medical History: Reports: Hx Hypothyroidism Renal/ Medical History: Denies: Hx Peritoneal Dialysis Psychiatric Medical History: Reports: Hx Depression Past Surgical History: Reports: Hx Appendectomy, Hx Cholecystectomy, Hx Tubal Ligation - Immunizations Hx Diphtheria, Pertussis, Tetanus Vaccination: Yes Review of Systems - Review of Systems Notes: REVIEW OF SYSTEMS GEN: Denies fever, chills, weight loss ENT: Denies sore throat, nasal discharge, ear pain EYES: Denies blurry vision, eye pain, discharge CV: Denies chest pain, palpitations, edema RESP: Denies cough, shortness of breath, wheezing GI: Vomiting and diarrhea MSK: Denies joint pain/swelling, edema, SKIN: Denies rash, skin lesions LYMPH: Denies swollen glands/lymph nodes NEURO: Denies headache, focal weakness or numbness, dizziness PSYCH: Denies depression, suicidal or homicidal ideation PHYSICAL EXAMINATION General: No acute distress, well-nourished Head: Atraumatic, normocephalic ENT: Mouth normal, oropharynx moist, no exudates or tonsillar enlargement Eyes: Conjunctiva normal, pupils equal, lids normal Neck: No JVD, supple, no guarding CVS: Normal rate, regular rhythm, no murmurs Resp: No resp distress, equal and normal breath sounds bilaterally GI: Nondistended, soft, no tenderness to palpation, no rebound or guarding Ext: No deformities, no edema, normal range of motion in upper and lower ext Back: No CVA or midline TTP Skin: No rash, warm Lymphatic: No lymphadeopathy noted Neuro: Awake, alert. Face symmetric. GCS 15. Physical Exam - Vital signs Vitals: Temp Pulse Resp BP Pulse Ox 97.4 F 93 14 123/89 H 99 06/30/18 10:44 06/30/18 10:44 06/30/18 10:44 06/30/18 10:44 06/30/18 10:44 Course - Re-evaluation Re-evalutation: 06/30/18 12:47 Well-appearing middle-aged female with chronic vomiting diarrhea currently looks well-hydrated with normal vital signs, her labs are sent prior to my evaluation and are also normal she is no abdominal tenderness. Her diagnosis of Crohn's is questioned given that she is never had a colonoscopy or biopsy. This sounds like a dietrelated issue, but also could benefit from a GI consult. At this point I do not believe she requires imaging given her lack of tenderness, IV hydration given her good hydration status on exam and resolved resolved vomiting/nausea with oral Zofran. We will p.o. challenge her and discharge her back to her primary to be referred to GI. I have discussed with the patient there likely diagnosis, aftercare plan, follow-up plans and my usual and customary return precautions. They verbalized understanding of this. - Vital Signs Vital signs: Temp Pulse Resp BP Pulse Ox 97.4 F 93 14 123/89 H 99 06/30/18 10:44 06/30/18 10:44 06/30/18 10:44 06/30/18 10:44 06/30/18 10:44 - Laboratory Result Diagrams: 06/30/18 11:22 06/30/18 11:22 Laboratory results interpreted by me: 06/30/18 06/30/18 11:22 11:22 Hgb 15.6 H Monocytes % 13.9 H Urine Ketones 20 H Urine Blood SMALL H Discharge - Discharge Clinical Impression: Chronic diarrhea Condition: Good Disposition: HOME, SELF-CARE Instructions: Abdominal Pain ([facility]), Antispasmodics ([facility]) Prescriptions: Diphenoxylate HCl/Atrop Sulf [Lomotil 2.5 mg Tablet] 1 tab PO Q6HP PRN #30 tablet PRN Reason: Promethazine HCl [Phenergan 25 mg Supp.rect] 1 supp LA Q6H #12 supp.rect Referrals: KADEN RUTLEDGE PA-C [Primary Care Provider] - Follow up as needed
[2018-06-30 13:47] VITALS: BP 127/89
== END 2018-06-30 13:47 | disposition home or self-care (01) ==
LOC: ER 10:18
DX: K52.9 Noninfective gastroenteritis and colitis, unspecified (principal); R10.9 Unspecified abdominal pain; F17.200 Nicotine dependence, unspecified, uncomplicated; I10 Essential (primary) hypertension; Z88.0 Allergy status to penicillin; Z88.3 Allergy status to other anti-infective agents; Z88.2 Allergy status to sulfonamides; Z90.49 Acquired absence of other specified parts of digestive tract; Z98.51 Tubal ligation status
CPT/HCPCS: 99284; 36415; 83690; 85025; 80053; 81001; S0119

== ENCOUNTER 2019-04-21 06:45 | Emergency (ER) | payer SELFPAY ==
[2019-04-21 07:17] VITALS: BP 146/107
--- NOTE | 2019-04-21 09:09 | ER Document Report ---
ED General - General Chief Complaint: Rash Stated Complaint: RASH Time Seen by Provider: 04/21/19 08:29 Primary Care Provider: KADEN RUTLEDGE PA-C [Primary Care Provider] - Follow up as needed Mode of Arrival: Ambulatory Information source: Patient TRAVEL OUTSIDE OF THE [place] IN LAST 30 DAYS: No - HPI Notes: Patient presents with a rash. She states this started approximate 3 days ago after taking a dietary supplement. The rash is burning in nature is on both arms and both legs. She denies any rash on the face or trunk. She has had no shortness of breath. No trouble breathing or swallowing. She has not had any palpitations lightheadedness or dizziness. She states she is been using Benadryl with no relief. The rash has been constant. It is not made better or worse by anything. It is moderate in intensity. It is burning in nature. It radiates to both arms and both legs - Related Data Allergies/Adverse Reactions: cephalexin monohydrate [From Keflex] Allergy (Verified 04/21/19 07:19) ciprofloxacin [From Cipro] Allergy (Verified 04/21/19 07:19) ciprofloxacin HCl [From Cipro] Allergy (Verified 04/21/19 07:19) Penicillins Allergy (Verified 04/21/19 07:19) Sulfa (Sulfonamide Antibiotics) Allergy (Verified 04/21/19 07:19) iodine [Iodine] Adverse Reaction (Verified 04/21/19 07:19) Home Medications: [facility] Past Medical History - General Information source: Patient - Social History Smoking Status: Never Smoker Chew tobacco use (# tins/day): No Frequency of alcohol use: None Drug Abuse: None Family History: Reviewed & Not Pertinent Patient has suicidal ideation: No Patient has homicidal ideation: No - Past Medical History Cardiac Medical History: Reports: Hx Hypertension Pulmonary Medical History: Reports: Hx Asthma Endocrine Medical History: Reports: Hx Hypothyroidism Renal/ Medical History: Denies: Hx Peritoneal Dialysis Psychiatric Medical History: Reports: Hx Depression Past Surgical History: Reports: Hx Appendectomy, Hx Cholecystectomy, Hx Tubal Ligation - Immunizations Hx Diphtheria, Pertussis, Tetanus Vaccination: Yes Review of Systems - Review of Systems Constitutional: denies: Chills, Fever Cardiovascular: denies: Chest pain, Palpitations Respiratory: denies: Cough, Short of breath -: Yes All other systems reviewed and negative Physical Exam - Vital signs Vitals: Temp Pulse Resp BP Pulse Ox 98.0 F 79 20 146/107 H 99 04/21/19 07:16 04/21/19 07:16 04/21/19 07:16 04/21/19 07:16 04/21/19 07:16 Interpretation: Hypertensive - General General appearance: Appears well, Alert - HEENT Head: Normocephalic, Atraumatic Eyes: Normal Pupils: PERRL - Respiratory Respiratory status: No respiratory distress Chest status: Nontender Breath sounds: Normal Chest palpation: Normal - Cardiovascular Rhythm: Regular Heart sounds: Normal auscultation Murmur: No - Abdominal Inspection: Normal Distension: No distension Bowel sounds: Normal Tenderness: Nontender Organomegaly: No organomegaly - Back Back: Normal, Nontender - Extremities General upper extremity: Normal inspection, Nontender, Normal color, Normal ROM, Normal temperature General lower extremity: Normal inspection, Nontender, Normal color, Normal ROM, Normal temperature, Normal weight bearing. No: Nati's sign - Neurological Neuro grossly intact: Yes Cognition: Normal Orientation: AAOx4 [place] Coma Scale Eye Opening: Spontaneous [place] Coma Scale Verbal: Oriented Last Coma Scale Motor: Obeys Commands Last Coma Scale Total: 15 Speech: Normal Motor strength normal: LUE, RUE, LLE, RLE Sensory: Normal - Psychological Associated symptoms: Normal affect, Normal mood - Skin Skin Temperature: Warm Skin Moisture: Dry Skin Color: Other - Patient has a mildly raised maculopapular rash on both upper extremities. It is mostly papule on the lower extremities. It appears consistent with an allergic reaction. Course - Vital Signs Vital signs: Temp Pulse Resp BP Pulse Ox 98.0 F 79 20 146/107 H 99 04/21/19 07:16 04/21/19 07:16 04/21/19 07:16 04/21/19 07:16 04/21/19 07:16 Discharge - Discharge Clinical Impression: Allergic reaction Qualifiers: Encounter type: initial encounter Qualified Code(s): T78.40XA - Allergy, unspecified, initial encounter Condition: Stable Disposition: HOME, SELF-CARE Instructions: Acute Allergic Reaction ([facility]) Prescriptions: Prednisone 50 mg PO DAILY 5 Days #25 tablet Hydroxyzine Pamoate [Vistaril 25 mg Capsule] 25 mg PO Q6 PRN #30 capsule PRN Reason: Referrals: KADEN RUTLEDGE PA-C [Primary Care Provider] - Follow up as needed
== END 2019-04-21 09:38 | disposition home or self-care (01) ==
LOC: ER 06:45
DX: T78.40XA Allergy, unspecified, initial encounter (principal); R21 Rash and other nonspecific skin eruption; Y92.9 Unspecified place or not applicable; Z88.8 Allergy status to other drugs, medicaments and biological substances; Z88.2 Allergy status to sulfonamides; I10 Essential (primary) hypertension; J45.909 Unspecified asthma, uncomplicated
CPT/HCPCS: 99282